=== PATIENT | female | born 1960 | race Caucasian/White ===

== ENCOUNTER → 2024-01-05 08:39 | Outpatient (REF) | payer OTHER, SELFPAY | LOC: RAD 08:39 | PROVIDERS: ATTENDING PHYSICIAN Thoracic Surgery (Cardiothoracic Vascular Surgery); FAMILY PHYSICIAN Family Medicine | DX: D49.89 Neoplasm of unspecified behavior of other specified sites (principal) | CPT/HCPCS: 71250 ==

== ENCOUNTER 2024-03-09 09:02 | Emergency (ER) | payer OTHER, SELFPAY ==
[2024-03-09 09:13] VITALS: BP 133/78
[2024-03-09 09:52] VITALS: BP 119/80
[2024-03-09] MEDS: ZOFRAN 4 MG IV (10:13)
[2024-03-09] MEDS: NSS 1000 IV (10:14)
--- NOTE | 2024-03-09 10:14 | ED.GENMED ---
History of Present Illness
<Aurea Mckeon PA-C - Last Filed: 03/09/24 23:14>
General
Chief Complaint: Weakness
Source: patient
Exam Limitations: none
Time Seen by Provider: 03/09/24 09:37
Nursing documentation reviewed up to this point in time: agreed with
History of Present Illness
History of Present Illness:
Patient is a 63 year old female with history of M�ni�re's disease, hyperlipidemia presenting to the emergency department following what seems to be a near syncopal event earlier this morning while at the gym. Patient states that about 1 hour ago
she was working out with her sister doing her normal exercise routine including weightlifting, leg press, squats when she felt extremely lightheaded and nauseous. She states she had tingling in her bilateral feet and hands. Patient was able to get
onto the ground and did not faint or lose consciousness. Patient reports numerous episodes of vomiting since arrival to the emergency department although at this time she is feeling better.
Patient denies any associated chest pain, shortness of breath, short back pain, headache. Patient denies any sensation of dizziness rather states it was a lightheaded feeling.
Patient has no known personal history of CAD. She does however state that her father has CAD and had a heart attack at age 50.
Review of Systems
<Aurea Mckeon PA-C - Last Filed: 03/09/24 23:14>
Review of Systems
Allergies reviewed?: Yes
All Other Systems: ROS reviewed and negative except as documented in HPI and ROS
Phy Exam
<Aurea Mckeon PA-C - Last Filed: 03/09/24 23:14>
Physical Exam
Physical Exam:
Vitals: Patient's vital signs are stable. Afebrile
General: Patient is well appearing, no acute distress. Nontoxic-appearing
Skin: Warm and dry, no rashes or lesions. Somewhat pale
Head: Normocephalic, atraumatic
Eyes: Sclera nonicteric. EOMs intact. No nystagmus.
Throat: Protecting airway
Neck: Normal ROM, no cervical spine tenderness, no meningismus. Trachea midline
Cardiac: Regular rate and rhythm, no murmurs.
Pulm: Normal respiratory effort, no wheezes, rales, rhonchi heard on exam.
Abdomen: Abdomen soft. No abdominal tenderness.
Extremities: No evidence of cyanosis or edema. Great distal pulses. Strength 5 out of 5 in upper and lower extremities.
Neuro: AAOx3. CN II-XII intact. No focal neurologic deficits. Sensation fully intact.
Psychiatric: Normal affect.
Course
<Aurea Mckeon PA-C - Last Filed: 03/09/24 23:14>
Orders/Labs/Results
Orders:
Orders
03/09/24 09:02
EKG [Electrocardiogram (*1)] Urgent
Reason for Study: Chest Pain
03/09/24 09:03
EKG- Treatment ONCE
03/09/24 10:08
0.9% Sodium Chloride 1000 ml [Nss] 1,000 ml IV BOLUS
Ondansetron Injectable [Zofran] 4 mg IV NOW STA
03/09/24 10:16
Complete Blood Count/With Diff Urgent
Comprehensive Metabolic Panel Urgent
Troponin I Urgent
03/09/24 11:00
Orthostatic VS- Treatment ONCE
03/09/24 13:09
Troponin I Urgent
03/09/24 13:15
Electrocardiogram (*1) Urgent
Reason for Study: Syncope
EKG- Treatment ONCE
Abnormal Lab Results
03/09/24
10:16
Abs Immat Gran (auto) 0.1 H 10^3/uL
(0-0.05)
Immature Gran % 0.8 H %
(0-0.5)
BUN 18 H mg/dl
(7-17)
Glucose 139 H mg/dl
(70-99)
03/09/24 10:16
03/09/24 10:16
Vital Signs
Initial and Last Documented VS:
Initial Vital Signs
Temp Pulse Resp BP Pulse Ox
98 F 78 16 133/78 98
03/09/24 09:13 03/09/24 09:13 03/09/24 09:13 03/09/24 09:13 03/09/24 09:13
Last Documented Vital Signs
Temp Pulse Resp BP Pulse Ox
98 F 82 18 109/57 98
03/09/24 09:13 03/09/24 14:00 03/09/24 14:00 03/09/24 14:00 03/09/24 09:13
<Katerine Melendez, - Last Filed: 03/11/24 01:32>
Orders/Labs/Results
Orders:
Orders
03/09/24 09:02
EKG [Electrocardiogram (*1)] Urgent
Reason for Study: Chest Pain
03/09/24 09:03
EKG- Treatment ONCE
03/09/24 10:08
0.9% Sodium Chloride 1000 ml [Nss] 1,000 ml IV BOLUS
Ondansetron Injectable [Zofran] 4 mg IV NOW STA
03/09/24 10:16
Complete Blood Count/With Diff Urgent
Comprehensive Metabolic Panel Urgent
Troponin I Urgent
03/09/24 11:00
Orthostatic VS- Treatment ONCE
03/09/24 13:09
Troponin I Urgent
03/09/24 13:15
Electrocardiogram (*1) Urgent
Reason for Study: Syncope
EKG- Treatment ONCE
Abnormal Lab Results
03/09/24
10:16
Abs Immat Gran (auto) 0.1 H 10^3/uL
(0-0.05)
Immature Gran % 0.8 H %
(0-0.5)
BUN 18 H mg/dl
(7-17)
Glucose 139 H mg/dl
(70-99)
03/09/24 10:16
03/09/24 10:16
Vital Signs
Initial and Last Documented VS:
Initial Vital Signs
Temp Pulse Resp BP Pulse Ox
98 F 78 16 133/78 98
03/09/24 09:13 03/09/24 09:13 03/09/24 09:13 03/09/24 09:13 03/09/24 09:13
Last Documented Vital Signs
Temp Pulse Resp BP Pulse Ox
98 F 82 18 109/57 98
03/09/24 09:13 03/09/24 14:00 03/09/24 14:00 03/09/24 14:00 03/09/24 09:13
<Aurea Mckeon PA-C - Last Filed: 03/09/24 23:14>
MDM/Problems Addressed
Differential Diagnosis Includes:
Not limited to: Dehydration, viral illness, hypotension, vasovagal syncope, doubt ACS
MDM/Problems Addressed:
Patient is a 63 year old female with history as documented presenting following what appears to be a near vasovagal syncope event. This occurred following exercising at gym including squats. Patient has had a few episodes of vomiting following
event. Patient denies any associated chest pain, shortness of breath, headache, neck pain, or dizziness. Did have some tingling in extremities. Vital signs stable on arrival. Physical exam as above. Patient appears mildly pale, although otherwise
well. Heart regular rate and rhythm. Lungs clear bilaterally. No focal neurologic deficits noted on exam. Patient was given a liter of IVF. EKG shows NSR without any acute ischemic changes. Labs were obtained which show no clinically significant
abnormalities. Although low suspicion for ACS - given association with exercise and family history two troponin were ordered which were both negative.
Patient is feeling better following IVF and has had no repeat episodes of vomiting. Vital signs have remained stable. No indication for admission. Patient stable for discharge with close return precautions, cardiology/ PCP follow-up. Patient
comfortable with plan. Patient seen with attending physician.
Chronic conditions affecting care:
Hyperlipidemia
Acute Exacerbation and/or Progression of Chronic Illness:
N/A
<Aurea Mckeon PA-C - Last Filed: 03/09/24 23:14>
*Pulse Oximetry
Patient hypoxic: no
*EKG
Interpreted by ED Provider?: Yes
EKG Intrepretation Date: 03/09/24
Interpretation: normal
Comparison EKG: no changes
Heart Rate: 86
Rate: normal
Rhythm: sinus
[place]: normal axis
Interval: normal interval
QRS Pattern: normal QRS
Ischemia: no ischemia
*[employer] Interpretation
Rate: normal
Interpretation: normal
Heart Rate: 70
Rhythm: sinus
*Critical Care Note
Total Time (30-74mins, 75-104mins- exclusive of procedures): Not Applicable
ED Attending Note
<Aurea Mckeon PA-C - Last Filed: 03/09/24 23:14>
-
Portions of this chart may have been created with voice recognition software.� Occasional wrong word or��sound alike� substitutions may have occurred due to the inherent limitations of voice recognition software.
<Katerine Melendez DO - Last Filed: 03/11/24 01:32>
ED Attending Note
Patient seen and examined by attending physician: Yes
I performed a history and physical exam of patient and discussed management with resident, I reviewed resident's note and agree with documented findings and plan of care.: Yes
ED Attending Note:
I have reviewed and agree with Aurea Mckeon PA-C's history and treatment plan. My exam revealed heart RRR, lungs clear, abdomen soft nondistended nontender. EOMI. PERRLA. CNII-XII grossly intact with no focal deficits. Normal finger to nose and
heel to woods. 5/5 strength bilateral upper and lower extremities. Sensation intact throughout. Pt states she feels significantly better, stable for discharge home with PCP follow up.
Discharge Plan
Departure
Patient Disposition: Home (Routine Discharge)
Date of Disposition: 03/09/24
Time of Disposition: 14:04
Patient with high blood pressure during this ER visit?: No
Condition: Good
Covid-19: Not Applicable
Discharge Problem:
Vasovagal near-syncope
Instructions: Near Fainting (DC), Dehydration, Adult ED
Referrals:
Edward Dobbins MD [Active] - Call in 1-3 days for appt
Activity Restrictions/Additional Instructions:
RETURN TO THE EMERGENCY DEPARTMENT WITH ANY SEVERE HEADACHE, CHEST PAIN, SHORTNESS OF BREATH, RECURRENT LIGHTHEADEDNESS, INTRACTABLE NAUSEA/ VOMITING, NUMBNESS/TINGLING, WORSENING IN CURRENT SYMPTOMS, OR ANY OTHER CONCERNS
-As discussed�it is important to stay well-hydrated. Take all medications as prescribed. You should take it easy over the next few days.
-Follow-up with your primary care/cardiology for further evaluation/management.
Monitor your symptoms closely and return to the emergency department any acute worsening/new symptoms.
Interventions
Interventions:
*Risk Screen - Suicide Last Done: 03/09/24 10:57
*General Assessment Last Done: 03/09/24 10:57
*Neglect/Abuse Screening Last Done: 03/09/24 10:57
ED- Fall Risk Assessment Last Done: 03/09/24 14:24
*Nursing Disposition Last Done: 03/09/24 14:24
ED- Cardiac Assessment Last Done: 03/09/24 10:57
ED- Neurological Assessment Last Done: 03/09/24 10:57
ED- Pulmonary Assessment Last Done: 03/09/24 10:57
Discharge Date and Time
Discharge Date/Time: 03/09/24 14:24
Print Language: CITIZEN OF [place]
[2024-03-09 10:28] LABS: % Basophils 0.5 % (0-2); % Eosinophils 0.5 % (0-6); % Immature Granulocytes 0.8 % (0-0.5); % Lymphocytes 23.4 % (20.5-51.1); % Monocytes 3.6 % (1.7-9.3); % Neutrophils 71.2 % (42.2-75.2); Absolute Immature Granulocytes 0.1 10^3/uL (0-0.05); Absolute Lymphocytes 1.5 10^3/uL (1.2-3.4); Absolute Monocytes 0.2 10^3/uL (0.1-0.6); Absolute Neutrophils 4.7 10^3/uL (1.4-6.5); Hematocrit 38.7 % (37.0-47.0); Hemoglobin 13.9 g/dL (12.0-16.0); Mean Corp Hgb Conc. 35.9 g/dL (33.0-37.0); Mean Corpuscular Volume 86.4 fL (81.0-99.0); Mean Platelet Volume 9.3 fL (7.4-10.4); Nucleated Red Blood Cells % 0 %; Platelet Count 210 10^3/uL (130-400); Red Blood Cell Count 4.48 10^6/uL (4.20-5.40); Red Cell Dist. Width 12.3 % (11.5-14.5); White Blood Cell Count 6.6 10^3/uL (4.8-10.8)
[2024-03-09 10:43] LABS: ALT (SGPT) 19 U/L (0-35); AST (SGOT) 25 U/L (14-36); Albumin 4.7 g/dl (3.5-5.0); Alkaline Phosphatase 59 U/L (38-126); Blood Urea Nitrogen 18 mg/dl (7-17); Calcium 9.9 mg/dl (8.4-10.2); Carbon Dioxide 26 mmol/L (22-30); Chloride 102 mmol/L (98-107); Glucose 139 mg/dl (70-99); Potassium 4.2 mmol/L (3.5-5.1); Sodium 137 mmol/L (135-145); Total Bilirubin 0.8 mg/dl (0.2-1.3); eGFR > 60.00
[2024-03-09 10:53] LABS: Troponin I < 0.012 ng/ml
[2024-03-09 13:07] VITALS: BP 114/67
[2024-03-09 13:44] LABS: Troponin I < 0.012 ng/ml
[2024-03-09 14:00] VITALS: BP 109/57
== END 2024-03-09 14:24 | disposition home or self-care (01) ==
LOC: EMR 09:02
PROVIDERS: Physician Assistant; EMERGENCY PHYSICIAN Emergency Medicine; FAMILY PHYSICIAN Family Medicine
DX: R55 Syncope and collapse (principal); R53.1 Weakness; Z82.49 Family history of ischemic heart disease and other diseases of the circulatory system
CPT/HCPCS: 99283; 96374; 96361; 80053; 84484; 85025; 93005

== ENCOUNTER → 2024-05-04 09:46 | Outpatient (REF) | payer OTHER, SELFPAY | LOC: RCS 09:46 | PROVIDERS: ATTENDING PHYSICIAN Internal Medicine Cardiovascular Disease; FAMILY PHYSICIAN Family Medicine | DX: R55 Syncope and collapse (principal) | CPT/HCPCS: 93306 ==

== ENCOUNTER → 2024-05-11 07:54 | Outpatient (REF) | payer OTHER, SELFPAY | LOC: RCS 07:54 | PROVIDERS: ATTENDING PHYSICIAN Internal Medicine Cardiovascular Disease; FAMILY PHYSICIAN Family Medicine | DX: R55 Syncope and collapse (principal) | CPT/HCPCS: 93017 ==

== ENCOUNTER → 2024-07-12 10:03 | Outpatient (REF) | payer OTHER, SELFPAY | LOC: WDC 10:03 | PROVIDERS: ATTENDING PHYSICIAN Obstetrics & Gynecology; FAMILY PHYSICIAN Family Medicine | DX: Z12.31 Encounter for screening mammogram for malignant neoplasm of breast (principal) | CPT/HCPCS: 77063; 77067 ==

== ENCOUNTER → 2024-08-08 09:43 | Outpatient (REF) | payer OTHER, SELFPAY | LOC: HWRAD 09:43 | PROVIDERS: ATTENDING PHYSICIAN Family Medicine | DX: E03.9 Hypothyroidism, unspecified (principal) | CPT/HCPCS: 76536 ==

== ENCOUNTER → 2024-08-23 14:18 | Outpatient (REF) | payer OTHER, SELFPAY | LOC: RAD 14:18 | PROVIDERS: ATTENDING PHYSICIAN Obstetrics & Gynecology; FAMILY PHYSICIAN Family Medicine | DX: Z78.0 Asymptomatic menopausal state (principal) | CPT/HCPCS: 77080 ==

== ENCOUNTER → 2024-08-29 10:05 | Outpatient (REF) | payer OTHER, SELFPAY | LOC: RAD 10:05 | PROVIDERS: ATTENDING PHYSICIAN Family Medicine | DX: R05.1 Acute cough (principal) | CPT/HCPCS: 71046 ==

== ENCOUNTER → 2024-11-08 12:41 | Outpatient (REF) | payer OTHER, SELFPAY | LOC: WDC 12:41 | PROVIDERS: ATTENDING PHYSICIAN Obstetrics & Gynecology; FAMILY PHYSICIAN Family Medicine | DX: R92.2 Inconclusive mammogram (principal) | CPT/HCPCS: 76641 ==

== ENCOUNTER → 2025-01-31 13:42 | Outpatient (REF) | payer OTHER, SELFPAY | LOC: HWRAD 13:42 | PROVIDERS: ATTENDING PHYSICIAN Thoracic Surgery (Cardiothoracic Vascular Surgery); FAMILY PHYSICIAN Family Medicine | DX: D49.89 Neoplasm of unspecified behavior of other specified sites (principal) | CPT/HCPCS: 71250 ==

== ENCOUNTER → 2025-05-30 10:19 | Outpatient (REF) | payer OTHER, SELFPAY | LOC: RAD 10:19 | PROVIDERS: ATTENDING PHYSICIAN Family Medicine | DX: M25.552 Pain in left hip (principal); M79.641 Pain in right hand | CPT/HCPCS: 73130; 73502 ==